=== PATIENT | male | born 1950 | race Two or more races ===

== ENCOUNTER 2019-09-21 05:16 | Inpatient (IN) | payer OTHER ==
[~2019-09-21] VITALS: Ht 180.3 cm; Wt 111.1 kg
[2019-09-21] MEDS ORDERED: TRANEXAMIC ACID 3,000 MG in SODIUM CHLORIDE IRRIG SOLUTION 70 ML IR ONE (07:30)
[2019-09-21] MEDS ORDERED: MIDAZOLAM HCL 2 MG/2ML VIAL ONE (09:50)
[2019-09-21] MEDS ORDERED: FENTANYL PF 100MCG/2ML AMPUL ONE (09:51)
[2019-09-21] MEDS ORDERED: MEPERIDINE HCL/PF 100 MG/ML DISP.SYRIN ONE (09:52)
[2019-09-21] MEDS ORDERED: FAMOTIDINE/PF INJ 20 MG/2 ML VIAL IV ONE (09:52)
[2019-09-21] MEDS ORDERED: BACITRACIN 50000 UNITS/VIAL ONE (09:53)
[2019-09-21] MEDS ORDERED: BUPIVACAINE 0.25% 75 MG/30 ML VIAL ONE (11:56)
[2019-09-21] MEDS ORDERED: MAGNESIUM HYDROXIDE 30 ML UDC PO PRN (12:00)
[2019-09-21] MEDS ORDERED: CLONIDINE HCL 0.1 MG TABLET PO PRN (12:00)
[2019-09-21] MEDS ORDERED: ONDANSETRON HCL/PF 4 MG/2 ML VIAL IV PRN (12:00)
[2019-09-21] MEDS ORDERED: MAG HYDROX/AL HYDROX/SIMETH 30 ML UDC PO PRN (12:00)
[2019-09-21] MEDS ORDERED: diphenhydrAMINE HCL 25 MG CAPSULE PO PRN (12:00)
[2019-09-21] MEDS ORDERED: ACETAMINOPHEN 325 MG TABLET PO PRN (12:00)
[2019-09-21] MEDS ORDERED: LORAZEPAM 1 MG TABLET PO PRN (12:00)
[2019-09-21 13:30] VITALS: BP 117/82
--- NOTE | 2019-09-21 13:30 | NUR ---
PERSONNEL CLERKS SUPERVISOR NOTES PATIENT ADMITTED FROM OR 68 Y/OLD MALE ON DX OF LEFT TOTAL KNEE REPLACEMENT. PATIENT MED/SURGE AWAKE A/O X4, NO ACUTE RESPIRATORY DISTRESS ROOM AIR.COMPLAINING OF LEFT KNEE PAIN 6/10 PER PAIN SCALE. F/C DRAINING LIGHT YELLOW OUTPUT. NEURO CHECK DONE BLE 2+, DVT PUMP ON, V/S TAKEN BP 117/82, P-94, R-19, T-97.7, O2-100 ROOM AIR. ORDERS TAKEN AND CARRIED OUT. SEEN PT BUT PATIENT REFUSED TO GET OUT OF BED BECAUSE OF PAIN. NEEDS ATTENDED AND ANTICIPATED, EDUCATED FOR INCENTIVE SPIROMETER, ICE ON HOLLY OF THE LEFT KNEE. HOSPITALIST AWARE OF NEW PATIENT, ALSO WILL FOLLOW BY PAIN MD WEAVER, AND PLASTERER SPRAY GUN. CONTINUED MONITORING. CALL LIGHT WITHIN TO REACH.
[2019-09-21 14:00] VITALS: BP_SYST 117; BP_SYST 124; BP_DIAS 80; BP_DIAS 82
[2019-09-21 14:24] VITALS: BP 137/75
[2019-09-21] MEDS: HYDROMORPHONE 1 MG/1 ML DISP.SYRIN SQ PRN ×3 (14:24→20:56)
--- NOTE | 2019-09-21 14:24 | NUR ---
RN NOTES ADMINISTERED DILAUDID 1 MG SQ PER PATIENT REQUEST PAIN 8/10 PER PAIN SCALE, V/S TAKEN BP 137/96, P108, DVT PUMP ON, ICE ON HOLLY ON THE LEFT KNEE, INCENTIVE SPIROMETER EDUCATED TO TO USE FOR POST UP, PATIENT VERBALIZED UNDERSTANDING.CALL LIGHT WITHIN TO REACH, SAFETY PRECAUTION MAINTAINED ALL THE TIME. NEURO CHECK DONE BLE 2+, PATIENT ABLE TO MOVE BOTH LEGS.
[2019-09-21] MEDS ORDERED: BISACODYL SUPP (10 MG) 10 MG/SUPP.RECT SUPP.RECT RC PRN (14:30)
[2019-09-21] MEDS ORDERED: SENNOSIDES 8.6 MG TABLET PO PRN (14:30)
[2019-09-21] MEDS: IV D5/0.45 NACL 1,000 ML IV PRN (14:52)
[2019-09-21 16:00] VITALS: BP 122/90
[2019-09-21] MEDS: ANCEF 1 GM/50 ML D5W IV SCH ×2 (17:41)
[2019-09-21] MEDS: DOCUSATE SODIUM 100 MG CAPSULE PO SCH (17:41)
--- NOTE | 2019-09-21 17:42 | NUR ---
RN NOTES ADMINISTERED DILAUDID 1 MG SQ LEFT DELTOID AREA PAIN 7/10 PER PATIENT REQUEST, V/S TAKEN BP-122/88, P-88, INFUSING ANCEF 1 GAS ORDERED, APPLIED ICE ON HOLLY OF THE LEFT KNEE, PATIENT EATING DINNER. HOSPITALIST Dr ATKINS WITH THE PATIENT. CONTINUED MONITORING.
--- NOTE | 2019-09-21 19:00 | NUR ---
MS RN OPENING NOTES Received patient A/O x4, awake on bed. On RA, no respiratory distress noted. S/P L total knee replacement day 0, dressing clean, dry and intact. With IVF infusing well as ordered, IV site no s/sx of phlebitis or infection. Discussed with patient the POC within the shift, patient verbalized understanding. Kept on bed clean, dry and comfortable. Call light within easy reach. Will continue to monitor accordingly.
[2019-09-21 20:00] VITALS: BP 139/89
[2019-09-21] MEDS: FAMOTIDINE (20 MG) 20 MG TABLET PO SCH (20:51)
[2019-09-21] MEDS: ZOLPIDEM TARTRATE 5 MG TABLET PO PRN (22:08)
[2019-09-22] MEDS: ANCEF 1 GM/50 ML D5W IV SCH ×2 (00:04)
[2019-09-22] MEDS: HYDROMORPHONE 1 MG/1 ML DISP.SYRIN SQ PRN ×6 (00:04→15:47)
[2019-09-22 02:10] LABS: HEMOGLOBIN 12.7 g/dL (13.5-17.5)
[2019-09-22] MEDS: oxyCODONE IR immediate release 5 MG PO PRN ×3 (05:29→11:33)
--- NOTE | 2019-09-22 06:44 | NUR ---
MS RN CLOSING NOTES Patient asleep, easily awaken. On RA, no SOB/respiratory distress noted. No s/sx of discomfort noted at this time. Due meds given as ordered, no ASE noted. Medicated for pain, noted effective. All nursing needs attended, no new complaints made. Kept on bed clean, dry and comfortable. On fall and aspiration precautions. Call light within easy reach. Endorsed.
--- NOTE | 2019-09-22 07:30 | NUR ---
RN MS NOTES PT IN BED, AWAKE, ALERT AND ORIENTED, PAIN MEDS GIVEN FOR PAIN MANAGEMENT, STATED THAT HIS PAIN IS MUCH MORE CONTROLLED TODAY, IV FLUIDS INFUSING WELL, CALL LIGHT WITHIN REACH, PLAN OF CARE DISCUSSED WITH PT, VERBALIZED UNDERSTANDING.
[2019-09-22 08:00] VITALS: BP 153/84
[2019-09-22] MEDS: FAMOTIDINE (20 MG) 20 MG TABLET PO SCH ×2 (08:38→21:47)
[2019-09-22] MEDS: DOCUSATE SODIUM 100 MG CAPSULE PO SCH ×2 (08:38→16:44)
[2019-09-22] MEDS: ASPIRIN 325 MG TABLET PO SCH ×2 (08:38→16:44)
[2019-09-22] MEDS ORDERED: ASPIRIN 325 MG TABLET PO SCH (09:00)
[2019-09-22] MEDS ORDERED: LOSA50TA39 PO (10:34)
[2019-09-22] MEDS ORDERED: LEVOTHYROXINE (10:34)
[2019-09-22] MEDS: IV D5/0.45 NACL 1,000 ML IV PRN ×2 (10:56)
[2019-09-22 12:00] VITALS: BP 150/95
--- NOTE | 2019-09-22 13:00 | NUR ---
RN MS NOTES PT IN BED, ASLEEP, EASY TO AROUSE, ALERT AND ORIENTED, PAIN MEDS GIVEN ORDERED FOR PAIN MANAGEMENT, F/C DRAINING WELL, SEEN BY PHYSICAL THERAPIST, TOLERATED WELL, IV FLUIDS INFUSING WELL, NEEDS ATTENDED.
[2019-09-22 16:00] VITALS: BP 146/90
--- NOTE | 2019-09-22 18:10 | NUR ---
RN MS NOTES PT IN BED, RESTING, NO COMPLAINT AT THIS TIME, PM MEDS GIVEN, IVF INFUSING WELL, CALL LIGHT WITHIN REACH, ALL NEEDS ATTENDED.
--- NOTE | 2019-09-22 19:55 | NUR ---
MS RN NOTE: PATIENT RESTING IN BED, NO ACUTE DISTRESS NOTED. BREATHING EVEN AND UNLABORED, NO SOB NOTED. IV TO LEFT HAND IN PLACE, INFUSING D5 1/2NS AT 125ML/HR. BED LOCKED AND IN LOWEST POSITION, CALL LIGHT IN REACH. WILL CONTINUE TO MONITOR.
[2019-09-22 20:00] VITALS: BP 150/90
[2019-09-23] MEDS: ZOLPIDEM TARTRATE 5 MG TABLET PO PRN (02:03)
--- NOTE | 2019-09-23 03:00 | NUR ---
MS RN NOTE: PATIENT IV ACCIDENTALLY GOT PULLED OUT. PATIENT REQUESTING TO TRY TO START IV LATER SINCE HE JUST GO HIS SLEEPING MEDICATION RECENTLY. WILL TRY IN THE MORNING TO START IV. WILL CONTINUE TO MONITOR. Addendum: 09/23/19 at 0547 by NEYMAR MARADIAGA RN ERROR: PATIENT IV TO LEFT WRIST STILL IN PLACE, IT WAS JUST THE IV TUBING THAT WAS DISCONNECTED. IV FLUSHED AND STILL WORKING.
--- NOTE | 2019-09-23 06:30 | NUR ---
MS RN NOTE: PATIENT RESTING IN BED, NO ACUTE DISTRESS NOTED. BREATHING EVEN AND UNLABORED, NO SOB NOTED. IV TO LEFT WRIST IN PLACE. BED LOCKED AND IN LOWEST POSITION, CALL LIGHT IN REACH. WILL ENDORSE TO DAY NURSE TO CONTINUE WITH PLAN OF CARE.
--- NOTE | 2019-09-23 07:30 | NUR ---
MS/RN OPENING NOTE Patient received in bed, s/p left knee total replacement, A/O x4, in no acute distress, no SOB noted, saturating >95% on RA. Patient has no complaints of pain at this time. Bruner catheter in place. IV line is intact s/l. Patient currently has immobilizer on the left leg. Bed is in lowest position, side rails x2 in upright position, call light is within reach and patient is aware of how to call for assistance when needed. Will continue with plan of care.
[2019-09-23 08:00] VITALS: BP 143/73
[2019-09-23] MEDS ORDERED: LOSARTAN POTASSIUM 50 MG TABLET PO SCH (09:00)
[2019-09-23] MEDS: ASPIRIN 325 MG TABLET PO SCH (09:10)
[2019-09-23] MEDS: DOCUSATE SODIUM 100 MG CAPSULE PO SCH (09:10)
[2019-09-23 09:11] VITALS: BP 143/73
[2019-09-23] MEDS: FAMOTIDINE (20 MG) 20 MG TABLET PO SCH (09:11)
[2019-09-23] MEDS: oxyCODONE IR immediate release 5 MG PO PRN ×2 (09:11→13:40)
--- NOTE | 2019-09-23 16:30 | NUR ---
MS/CUTTER DOWN NOTE Patient is medically stable for discharge, s/p left knee total replacement, A/O x4, in no acute distress, no SOB noted, saturating >95% on RA. Vital signs WNL. Bruner discontinued , patient is cleared per PT and is able to ambulate using the walker. DC instructions provided and patient verbalized understanding. Patient has all belongings with them. IV line removed, ID band removed. Patient's skin is intact. All patient needs met, all due meds given. MD is aware of discharge. Patient left the unit on wheelchair and left hospital via private car accompanied by .
== END 2019-09-23 16:30 | disposition home health service (06) | DRG 470 ==
LOC: DS 05:16 → MED 14:00
PROVIDERS: ADMIT Internal Medicine; ATTEND Internal Medicine
PROC: 0SRD0J9 Replacement of Left Knee Joint with Synthetic Substitute, Cemented, Open Approach (ICD-10-PCS; principal; 2019-09-21)
DX: M17.12 Unilateral primary osteoarthritis, left knee (principal); I10 Essential (primary) hypertension; E66.9 Obesity, unspecified; Z68.34 Body mass index [BMI] 34.0-34.9, adult; E03.9 Hypothyroidism, unspecified; Z87.891 Personal history of nicotine dependence; F41.0 Panic disorder [episodic paroxysmal anxiety]
CPT/HCPCS: 36415; 85027-TC; 86850-TC; 86921-TC; 87081-TC; 88305-TC; 88311-TC; 97110-TC; 97116-TC; 97530-TC; 97760-TC; G0378; J0690; J1170; J2175; J2250; J2405; J3010; J3490; J7060